=== PATIENT | female | born 1960 | race African-American/Black ===

== ENCOUNTER → 2017-08-26 | Outpatient (CLI) | payer BC ==
[~2017-08-26] MED LIST: CLX20 PO; DICL0.1S OPB; DILT240C9 PO; DULO60CA44 PO; EST1 PO; LISI-725 PO; MEDR2.5T PO; Omega XL PO
== END | disposition home or self-care (01) ==
LOC: C.PAPS 18:19
PROVIDERS: ATTEND Physician Assistant
DX: Z01.419 Encounter for gynecological examination (general) (routine) without abnormal findings (principal)